=== PATIENT | male | born 1945 | race Caucasian/White ===

== ENCOUNTER 2017-02-24 08:32 | Outpatient (CLI) | payer MEDICARE ==
--- NOTE | 2017-02-24 13:02 | ULT ---
THYROID ULTRASOUND: HISTORY: Thyroid nodule. FINDINGS: Real-time imaging of the right and left lobes of the thyroid were performed. The right lobe measures 1.4 x 1.5 x 3.6 cm; the left lobe 1.1 x 1.2 x 3.5 cm. There is a 7 x 9 mm left lobe thyroid nodule and a 4 x 6 mm right lobe thyroid nodule present, both of which appear solid. IMPRESSION: Small bilateral thyroid nodules. POS: [facility]
--- NOTE | 2017-02-24 15:51 | ULT ---
ULTRASOUND ABDOMEN: HISTORY: Abnormal abdominal ultrasound. FINDINGS: The pancreas, left lobe of the liver, and abdominal aorta are not satisfactorily visualized due to ov erlying bowel gas. The right lobe of the liver demonstrates homogeneous echotexture without focal ma ss or intrahepatic ductal dilatation. Echogenicity sludge is seen in the gallbladder. There are mob ile echogenic foci in the gallbladder lumen, most of which do not demonstrate shadowing. There is qu estionable shadowing in one of these foci. No gallbladder wall thickening or pericholecystic fluid i s seen. The common duct measures 6 mm in diameter. No renal mass or hydronephrosis is seen. IMPRESSION: 1. Limited exam due to bowel gas. 2. Gallbladder sludge with probable cholelithiasis. POS: [facility]
== END 2017-02-24 08:33 | disposition home or self-care (01) ==
LOC: ULT 08:32
PROVIDERS: ATTEND Family Medicine
DX: E04.1 Nontoxic single thyroid nodule (principal); R93.5 Abnormal findings on diagnostic imaging of other abdominal regions, including retroperitoneum; K83.8 Other specified diseases of biliary tract; E04.2 Nontoxic multinodular goiter
CPT/HCPCS: 76536; 76700